=== PATIENT | female | born 1980 | race Caucasian/White ===

== ENCOUNTER 2020-09-17 18:39 | Emergency (ER) | payer OTHER ==
[~2020-09-17] VITALS: Ht 154.9 cm; Wt 54.4 kg
[~2020-09-17 18:39] MED LIST: BACTRIM DS TAB1 EACH PO; HYDROCODONE-AP1 EAC6 PO; IBUPROFEN 800800 M1 PO
[2020-09-17 18:59] LABS: URINE BILIRUBIN NEGATIVE (Negative); URINE BLOOD 3+ (Negative); URINE CLARITY CLEAR; URINE COLOR YELLOW; URINE GLUCOSE-RANDOM NEGATIVE (Negative); URINE KETONES NEGATIVE (Negative); URINE LEUKOCYTES-REFLEX TRACE (Negative); URINE NITRITE-REFLEX NEGATIVE (Negative); URINE PROTEIN TRACE (Negative); URINE SPECIFIC GRAVITY >= 1.030 (1.005-1.030); URINE UROBILINOGEN 0.2 E.U./dl (0.2-1.0)
[2020-09-17 19:09] LABS: MUCUS 4-6 Moderate strn/LPF (None Seen); SQUAMOUS >10 Many /LPF (0-3); URINE RBC >20 Many /HPF (0-2); URINE WBC-REFLEX 0-5 Rare /HPF (0-5)
[2020-09-17 19:11] LABS: BACTERIA-REFLEX 1-9 Few /HPF (None Seen); CASTS None Seen /LPF (None Seen); CRYSTALS None Seen /LPF (None Seen)
[2020-09-17 19:31] LABS: ABSOLUTE BASOPHILS 0.1 thou/uL (0.0-0.2); ABSOLUTE EOSINOPHILS 0.1 thou/uL (0.0-0.7); ABSOLUTE LYMPHOCYTES 1.6 thou/uL (0.8-5.3); ABSOLUTE MONOCYTES 1.1 thou/uL (0.0-1.2); ABSOLUTE NEUTROPHILS 4.7 thou/uL (1.6-8.1); BASOPHILS 1.1 %; EOSINOPHILS 1.9 %; HEMATOCRIT 37.9 % (37.0-47.0); HEMOGLOBIN 12.6 gm/dL (12.0-15.0); LYMPHOCYTES 21.6 %; MCH 28.3 pg (26.0-34.0); MCHC 33.2 g/dL (28.0-37.0); MCV 85.2 fL (80.0-100.0); MONOCYTES 14.3 %; MPV 7.2 fl. (7.2-11.1); NUCLEATED RBCS 0 /100WBC; PLATELET COUNT* 370 thou/uL (150-400); POLYS 61.1 %; RBC 4.45 mil/uL (4.20-5.00); RDW-CV 14.4 % (10.5-14.5); WBC 7.6 thou/uL (4.0-11.0)
[2020-09-17 19:39] LABS: CALCIUM 8.4 mg/dL (8.5-10.1); CREATININE 0.9 mg/dL (0.6-1.3); POTASSIUM 3.6 mmol/L (3.5-5.1)
[2020-09-17 19:44] LABS: ALBUMIN 3.3 g/dL (3.4-5.0); TOTAL BILIRUBIN 0.2 mg/dL (<0.1-1.0); TOTAL PROTEIN 7.6 g/dL (6.4-8.2)
[2020-09-17] MEDS ORDERED: ZOFRAN ODT4 MG PO (20:10)
[2020-09-17] MEDS ORDERED: CEPHALEXIN500 MG PO (20:10)
[2020-09-17] MEDS ORDERED: PHENAZOPYRIDIN200 M2 PO (20:10)
[2020-09-17 20:35] VITALS: BP 105/67
[2020-09-22] MEDS ORDERED: FLOMAX0.4 MG PO ×2 (04:02→14:36)
[2020-09-22] MEDS ORDERED: HYDROCODON-ACE1 EAC8 PO (04:19)
== END 2020-09-17 20:37 | disposition home or self-care (01) ==
LOC: M.ERS 18:39
PROVIDERS: Nurse Practitioner Family
DX: N30.90 Cystitis, unspecified without hematuria (principal); J45.909 Unspecified asthma, uncomplicated; Z98.51 Tubal ligation status

== ENCOUNTER 2020-09-21 06:51 | Emergency (ER) | payer OTHER ==
[~2020-09-21] VITALS: Ht 154.9 cm; Wt 52.5 kg
[~2020-09-21 06:51] MED LIST changes: +CEPHALEXIN500 MG PO; +PHENAZOPYRIDIN200 M2 PO; +ZOFRAN ODT4 MG PO
[2020-09-21 07:20] LABS: URINE BLOOD 3+ (Negative); URINE CLARITY CLEAR; URINE COLOR DARK YELLOW; URINE GLUCOSE-RANDOM NEGATIVE (Negative); URINE KETONES NEGATIVE (Negative); URINE LEUKOCYTES-REFLEX TRACE (Negative); URINE PROTEIN 3+ (Negative); URINE SPECIFIC GRAVITY >= 1.030 (1.005-1.030)
[2020-09-21 07:24] LABS: ICTOTEST (BILI CONFIRMATORY) Negative (Negative); URINE BILIRUBIN 1+ (Negative); URINE NITRITE-REFLEX POSITIVE (Negative)
[2020-09-21 07:32] LABS: CASTS None Seen /LPF (None Seen); CRYSTALS None Seen /LPF (None Seen); MUCUS 0-3 Light strn/LPF (None Seen); SQUAMOUS 0-3 Few /LPF (0-3); URINE RBC >20 Many /HPF (0-2)
[2020-09-21 07:44] LABS: ABSOLUTE BASOPHILS 0.1 thou/uL (0.0-0.2); ABSOLUTE EOSINOPHILS 0.2 thou/uL (0.0-0.7); ABSOLUTE LYMPHOCYTES 1.7 thou/uL (0.8-5.3); ABSOLUTE NEUTROPHILS 3.2 thou/uL (1.6-8.1); EOSINOPHILS 2.9 %; HEMOGLOBIN 13.2 gm/dL (12.0-15.0); LYMPHOCYTES 27.9 %; MCH 28.6 pg (26.0-34.0); MCHC 33.7 g/dL (28.0-37.0); MCV 84.7 fL (80.0-100.0); MONOCYTES 15.9 %; MPV 7.1 fl. (7.2-11.1); NUCLEATED RBCS 0 /100WBC; PLATELET COUNT* 325 thou/uL (150-400); POLYS 52.3 %; RBC 4.61 mil/uL (4.20-5.00); RDW-CV 14.4 % (10.5-14.5); WBC 6.1 thou/uL (4.0-11.0)
[2020-09-21 07:51] LABS: CALCIUM 8.7 mg/dL (8.5-10.1); CREATININE 0.7 mg/dL (0.6-1.3); POTASSIUM 3.8 mmol/L (3.5-5.1)
[2020-09-21 07:55] LABS: ALBUMIN 3.2 g/dL (3.4-5.0); TOTAL BILIRUBIN 0.3 mg/dL (<0.1-1.0)
[2020-09-21] MEDS ORDERED: MACROBID 100 M100 M1 PO (08:43)
[2020-09-21] MEDS ORDERED: HYDROCODON-ACE1 EAC7 PO (08:43)
[2020-09-21 09:29] VITALS: BP 96/58
[2020-09-22] MEDS ORDERED: PYRIDIUM200 MG PO (04:02)
[2020-09-22] MEDS ORDERED: FLOMAX0.4 MG PO ×2 (04:02→14:36)
[2020-09-22] MEDS ORDERED: HYDROCODON-ACE1 EAC8 PO (04:19)
== END 2020-09-21 09:31 | disposition home or self-care (01) ==
LOC: M.ERS 06:51
PROVIDERS: Emergency Medicine; Family Medicine
DX: N39.0 Urinary tract infection, site not specified (principal); R11.2 Nausea with vomiting, unspecified; J45.909 Unspecified asthma, uncomplicated; F32.9 Major depressive disorder, single episode, unspecified; Z98.51 Tubal ligation status; Z79.2 Long term (current) use of antibiotics; Z79.899 Other long term (current) drug therapy

== ENCOUNTER 2020-09-22 03:07 | Emergency (ER) | payer OTHER ==
[~2020-09-22] VITALS: Ht 165.1 cm; Wt 52.2 kg
[~2020-09-22 03:07] MED LIST changes: +HYDROCODON-ACE1 EAC7 PO; +MACROBID 100 M100 M1 PO
[2020-09-22] MEDS ORDERED: FLOMAX0.4 MG PO ×3 (04:02→14:36)
[2020-09-22] MEDS ORDERED: PYRIDIUM200 MG PO (04:02)
[2020-09-22] MEDS ORDERED: HYDROCODON-ACE1 EAC8 PO ×2 (04:19)
[2020-09-22 04:40] VITALS: BP 127/85
== END 2020-09-22 04:43 | disposition home or self-care (01) ==
LOC: M.ERS 03:07
DX: R33.9 Retention of urine, unspecified (principal); J45.909 Unspecified asthma, uncomplicated; Z98.51 Tubal ligation status

== ENCOUNTER 2020-09-22 14:09 | Emergency (ER) | payer OTHER ==
[~2020-09-22] VITALS: Ht 165.1 cm; Wt 52.2 kg
[~2020-09-22 14:09] MED LIST changes: +FLOMAX0.4 MG PO; +HYDROCODON-ACE1 EAC8 PO; +PYRIDIUM200 MG PO
[2020-09-22] MEDS ORDERED: FLOMAX0.4 MG PO (14:36)
[2020-09-22 15:51] VITALS: BP 101/68
== END 2020-09-22 15:54 | disposition home or self-care (01) ==
LOC: M.ERS 14:09
DX: T83.098A Other mechanical complication of other urinary catheter, initial encounter (principal); Z98.51 Tubal ligation status; Y84.8 Other medical procedures as the cause of abnormal reaction of the patient, or of later complication, without mention of misadventure at the time of the procedure; Y92.89 Other specified places as the place of occurrence of the external cause

== ENCOUNTER 2020-09-23 14:18 | Emergency (ER) | payer OTHER ==
[~2020-09-23] VITALS: Ht 154.9 cm; Wt 52.2 kg
[2020-09-23 14:43] VITALS: BP 113/72
== END 2020-09-23 14:44 | disposition home or self-care (01) ==
LOC: M.ERS 14:18
DX: N93.9 Abnormal uterine and vaginal bleeding, unspecified (principal); J45.909 Unspecified asthma, uncomplicated; Z98.51 Tubal ligation status

== ENCOUNTER 2020-09-24 12:40 | Emergency (ER) | payer OTHER ==
[~2020-09-24] VITALS: Ht 154.9 cm; Wt 52.2 kg
[2020-09-24 13:25] VITALS: BP 114/74
== END 2020-09-24 13:25 | disposition home or self-care (01) ==
LOC: M.ERS 12:40
DX: Z46.6 Encounter for fitting and adjustment of urinary device (principal); J45.909 Unspecified asthma, uncomplicated; F32.9 Major depressive disorder, single episode, unspecified; Z98.51 Tubal ligation status; Z79.2 Long term (current) use of antibiotics; Z79.899 Other long term (current) drug therapy

== ENCOUNTER 2021-01-02 15:02 | Emergency (ER) | payer OTHER ==
[~2021-01-02] VITALS: Ht 154.9 cm; Wt 46.3 kg
[2021-01-02] MEDS ORDERED: CIPRODEX OTIC7.5 ML OTIC ×2 (15:57)
[2021-01-02] MEDS ORDERED: IBUPROFEN 600600 M1 PO (15:57)
[2021-01-02] MEDS ORDERED: AMOXICILLIN 50500 MG PO ×2 (15:57)
[2021-01-02] MEDS ORDERED: HYDROCODON-ACE1 EAC7 PO (16:01)
[2021-01-02 16:40] VITALS: BP 119/78
== END 2021-01-02 16:41 | disposition home or self-care (01) ==
LOC: M.ERS 15:02
DX: H66.92 Otitis media, unspecified, left ear (principal); H60.92 Unspecified otitis externa, left ear; J45.909 Unspecified asthma, uncomplicated; F32.9 Major depressive disorder, single episode, unspecified; Z86.16 Personal history of COVID-19

== ENCOUNTER 2021-01-05 11:29 | Emergency (ER) | payer OTHER ==
[~2021-01-05] VITALS: Ht 157.5 cm; Wt 46.3 kg
[~2021-01-05 11:29] MED LIST changes: +AMOXICILLIN 50500 MG PO; +CIPRODEX OTIC7.5 ML OTIC; +IBUPROFEN 600600 M1 PO
[2021-01-05] MEDS ORDERED: MOBIC7.5 MG PO (15:23)
[2021-01-05] MEDS ORDERED: MEDROLDOSEPACK PO (15:23)
[2021-01-05 16:22] VITALS: BP 122/72
== END 2021-01-05 16:22 | disposition home or self-care (01) ==
LOC: M.ERS 11:29
DX: U07.1 COVID-19 (principal); M25.522 Pain in left elbow; M25.532 Pain in left wrist; M25.571 Pain in right ankle and joints of right foot; J45.909 Unspecified asthma, uncomplicated; F32.9 Major depressive disorder, single episode, unspecified; Z79.1 Long term (current) use of non-steroidal anti-inflammatories (NSAID); Z79.891 Long term (current) use of opiate analgesic